=== PATIENT | male | born 1985 | race African-American/Black ===

== ENCOUNTER → 2024-07-06 | Outpatient (CLI) | payer MEDICAID ==
[2024-07-06 10:30] LABS: Hepatitis B Surface Antigen Negative (Negative)
[2024-07-07 07:07] LABS: Mumps IgG Antibody <9.0 AU/mL (Immune >10.9)
[2024-07-07 08:06] LABS: RPR Non Reactive (Non Reactive); Varicella Zoster IgG Antibody Reactive (Non Reactive)
[2024-07-08 21:06] LABS: HBV as IU/mL HBV DNA not detected IU/mL (.)
== END | disposition home or self-care (01) ==
LOC: LAB 09:04
PROVIDERS: ATTEND Internal Medicine
DX: Z00.01 Encounter for general adult medical examination with abnormal findings (principal); L81.8 Other specified disorders of pigmentation
CPT/HCPCS: 36415; 86592; 86703; 86704; 86706; 86708; 86735; 86787; 86803; 87340; 87517

== ENCOUNTER → 2024-09-11 | Outpatient (CLI) | payer MEDICAID ==
[2024-09-11 16:04] LABS: Basophils # (auto) 0 10 ^3/uL (0-0.2); Basophils % (auto) 0.5 % (0.0-2.0); Eosinophils # (auto) 0.1 10 ^3/uL (0-0.8); Eosinophils % (auto) 1.2 % (0.0-7.0); Hematocrit 42.5 % (41.0-53.0); Hemoglobin 14.4 g/dL (13.5-17.5); Lymphocytes # (auto) 2.3 10 ^3/uL (0.4-5.4); Lymphocytes % (auto) 44.4 % (10.0-50.0); Mean Corpuscular Hemoglobin 32.3 pg (28.0-32.0); Mean Corpuscular Hgb Conc. 33.8 g/dL (32.0-36.0); Mean Corpuscular Volume 95.6 fL (80.0-100.0); Monocytes # (auto) 0.6 10 ^3/uL (0-1.3); Monocytes % (auto) 12.2 % (0.0-12.0); Neutrophils # (auto) 2.2 10 ^3/uL (1.6-8.6); Neutrophils % (auto) 41.7 % (37.0-80.0); Nucleated Red Blood Cells % 0.1 %; Platelet Count (auto) 242 10^3/uL (140-450); Red Blood Cells 4.45 10^6/uL (4.5-5.90); Red Cell Distribution Width 13.2 % (11.8-14.3); White Blood Cell 5.3 10^3/uL (4.4-10.8)
[2024-09-11 16:26] LABS: INR 0.96 (0.9-1.15); Prothrombin Time 10.2 sec (9.3-11.8)
== END | disposition home or self-care (01) ==
LOC: LAB 15:49
PROVIDERS: ATTEND Internal Medicine Gastroenterology
DX: R10.9 Unspecified abdominal pain (principal)
CPT/HCPCS: 36415; 82565; 85025; 85610; 85730